=== PATIENT | female | born 1930 | race Caucasian/White ===

== ENCOUNTER 2019-06-12 10:55 | Outpatient (CLI) | payer MEDICARE, BC ==
[~2019-06-12 10:55] MED LIST: ASPI-496 PO; ATOR40TA78 PO; DIPH-419 PO; HYDR1TAB13 PO; METO25TA35 PO; REGADENOSON 0.4 MG/5 ML SYRINGE ONE; VALS320T2 PO
[2019-06-20] MEDS ORDERED: FURO20TA3 PO (06:52)
[2019-06-20] MEDS ORDERED: POTA10TA6 PO (06:53)
[2019-06-20] MEDS ORDERED: TRAZ-96 PO (06:56)
[2019-06-20] MEDS ORDERED: ESCI10TA10 PO (06:56)
[2019-06-20] MEDS ORDERED: BUPR150T13 PO (06:56)
[2019-06-20] MEDS ORDERED: POLY17PO5 PO (06:56)
[2019-08-30] MEDS ORDERED: ISOS30TA8 PO (22:52)
[2019-08-30] MEDS ORDERED: FAMO-79 PO (22:52)
[2019-08-30] MEDS ORDERED: ALBUTEROL INH (22:52)
[2019-08-30] MEDS ORDERED: AMIO200T7 PO (22:52)
[2019-08-30] MEDS ORDERED: HYDR1TAB16 PO (22:52)
[2019-08-30] MEDS ORDERED: FOLI-17 PO (22:52)
[2019-08-30] MEDS ORDERED: ONDA4TAB7 PO (22:52)
[2019-08-30] MEDS ORDERED: TIOT18CA INH (22:52)
[2019-08-30] MEDS ORDERED: CARV3.122 PO (22:52)
[2019-08-30] MEDS ORDERED: SPIR25TA5 PO (23:13)
[2019-09-04] MEDS ORDERED: CEFD300C37 PO (10:56)
== END 2019-06-12 23:59 | disposition home or self-care (01) ==
LOC: CFH 10:55
PROVIDERS: ATTEND Internal Medicine
DX: I08.3 Combined rheumatic disorders of mitral, aortic and tricuspid valves (principal); I21.29 ST elevation (STEMI) myocardial infarction involving other sites; I25.89 Other forms of chronic ischemic heart disease; I10 Essential (primary) hypertension; E78.5 Hyperlipidemia, unspecified; F17.200 Nicotine dependence, unspecified, uncomplicated; Z95.1 Presence of aortocoronary bypass graft
CPT/HCPCS: 78452; 93017; 93306; A9502; J2785

== ENCOUNTER 2019-06-20 06:11 | Day surgery (SDC) | payer MEDICARE, BC ==
[~2019-06-20] VITALS: Ht 162.6 cm; Wt 59.5 kg
[2019-06-20 06:39] VITALS: BP 156/54
== END 2019-06-20 11:30 | disposition home or self-care (01) ==
LOC: CACL 06:11
PROVIDERS: ATTEND Internal Medicine Cardiovascular Disease
DX: I25.119 Atherosclerotic heart disease of native coronary artery with unspecified angina pectoris (principal); I10 Essential (primary) hypertension; E78.2 Mixed hyperlipidemia; F17.210 Nicotine dependence, cigarettes, uncomplicated; Z95.1 Presence of aortocoronary bypass graft
CPT/HCPCS: 36415; 80048; 85025; 93458; 99156; 99157; C1769; C1894; J1644; J2250; J3010; Q9967; J0583

== ENCOUNTER 2019-09-15 12:50 | Inpatient (IN) | payer MEDICARE, BC ==
[~2019-09-15] VITALS: Ht 165.1 cm; Wt 60.0 kg
[~2019-09-15 12:50] MED LIST changes: +ALBUTEROL INH; +AMIO200T7 PO; +BUPR150T13 PO; +CARV3.122 PO; +CEFD300C37 PO; +ESCI10TA10 PO; +FAMO-79 PO; +FOLI-17 PO; +FURO20TA3 PO; +HYDR1TAB16 PO; +ISOS30TA8 PO; +ONDA4TAB7 PO; +POLY17PO5 PO; +POTA10TA6 PO; -REGADENOSON 0.4 MG/5 ML SYRINGE ONE; +SPIR25TA5 PO; +TIOT18CA INH; +TRAZ-96 PO
--- NOTE | 2019-09-15 14:24 | NUR ---
TO ROOM 30 WITH FAMILY
[2019-09-15] MEDS ORDERED: PROCHLORPERAZINE 5 MG/ML, 2ML ONE (14:42)
[2019-09-15] MEDS ORDERED: PROCHLORPERAZINE 5 MG/ML, 2ML IVPush ONE ×2 (15:00→15:30)
[2019-09-15] MEDS ORDERED: SODIUM CHLORIDE FLUSH 10ML SYR IVF ONE (15:00)
[2019-09-15 15:13] LABS: ALANINE AMINOTRANSFERASE 30 U/L (12-78); ALBUMIN 4.3 g/dL (3.4-5.0); ANION GAP 7 mmol/L (5-15); CALCIUM 9.6 mg/dL (8.5-10.1); CHLORIDE 96 mmol/L (98-107); CREATININE 1.03 mg/dL (0.55-1.02)
[2019-09-15 15:16] LABS: ALKALINE PHOSPHATASE 59 U/L (45-117); BILIRUBIN,TOTAL 0.6 mg/dL (0.2-1.0); TOTAL PROTEIN 7.3 g/dL (6.4-8.2)
[2019-09-15 15:35] LABS: BASOPHILS # (AUTO) 0.05 x10^3/uL (0-0.1); BASOPHILS % (AUTO) 0 % (0-1); EOSINOPHILS % (AUTO) 0 % (1-7); LYMPHOCYTES # (AUTO) 0.65 x10^3/uL (1-3.4); LYMPHOCYTES % (AUTO) 6 % (22-44); MD SCAN; MEAN CORPUSCULAR HEMOGLOBIN 34.4 pg (27.0-34.8); MEAN CORPUSCULAR HGB CONC 32.6 g/dL (32.4-35.8); MEAN CORPUSCULAR VOLUME 105.5 fL (80-100); MONOCYTES # (AUTO) 0.89 x10^3/uL (0.2-0.8); MONOCYTES % (AUTO) 8 % (2-9); NEUTROPHILS # (AUTO) 9.84 x10^3/uL (1.8-6.8); NEUTROPHILS % (AUTO) 86 % (42-75); PLATELET COUNT 288 x10^3/uL (130-400); RED BLOOD COUNT 3.76 x10^6/uL (3.82-5.3); RED CELL DISTRIBUTION WIDTH 15.1 % (9.6-15.2)
--- NOTE | 2019-09-15 15:38 | NUR ---
PT NAUSEOUS, MEDICATED PER MAR. TO IMAGING AT THIS TIME.
--- NOTE | 2019-09-15 15:50 | NUR ---
Break RN: pt returned from CT in NAD at this time, awaiting rads read & dispo.
--- NOTE | 2019-09-15 16:20 | NUR ---
Break RN: pt assisted onto bedpan, c/o continued nausea, MD Roberson notified & has been at bedside to reevaluate pt.
[2019-09-15] MEDS ORDERED: SODIUM CHLORIDE 0.9%, 500ML IVBOLUS ONE (17:00)
[2019-09-15] MEDS ORDERED: HALOPERIDOL 5 MG/ML IV PRN (17:00)
[2019-09-15] MEDS ORDERED: FAMOTIDINE 20 MG/2 ML IVPush ONE (17:00)
[2019-09-15] MEDS ORDERED: FAMOTIDINE 20 MG/2 ML ONE (17:04)
[2019-09-15] MEDS ORDERED: HALOPERIDOL 5 MG/ML ONE (17:04)
--- NOTE | 2019-09-15 18:25 | NUR ---
REPORT CALLED TO RECEIVING RN. PT UP TO COMMODE WITH ONE PERSON ASSIST, URINE COLLECTED AND SENT.
[2019-09-15 18:36] LABS: TROPONIN I 0.017 ng/mL (0.000-0.045)
[2019-09-15 18:59] LABS: MICROSCOPIC NOT IND
[2019-09-15 19:02] LABS: CULTURE INDICATED? NO
[2019-09-15] MEDS ORDERED: SODIUM CHLORIDE 0.9% 1,000 ML IV SCH (19:27)
[2019-09-15] MEDS ORDERED: LABETALOL 5 MG/ML SYR. (IV ONLY) IVPush PRN (19:30)
[2019-09-15] MEDS ORDERED: TRAZODONE 50MG TABLET PO PRN (19:30)
[2019-09-15] MEDS: CARVEDILOL 3.125 MG TABLET PO SCH (20:07)
[2019-09-15] MEDS: ONDANSETRON 2MG/ML, 2ML IVPush PRN (20:08)
[2019-09-15] MEDS: HEPARIN 5,000 UNITS/ML, 1ML SQ SCH (20:08)
[2019-09-15 20:55] LABS: ALBUMIN 4.4 g/dL (3.4-5.0); BILIRUBIN, DIRECT 0.2 mg/dL (0.1-0.2)
[2019-09-15 21:05] LABS: BILIRUBIN,INDIRECT 0.4 mg/dL (0.0-2.0); BILIRUBIN,TOTAL 0.6 mg/dL (0.2-1.0); TOTAL PROTEIN 7.4 g/dL (6.4-8.2)
[2019-09-15 23:00] VITALS: BP 159/71
[2019-09-15] MEDS ORDERED: PROMETHAZINE 25 MG/ML, 1ML ONE (23:56)
[2019-09-16] MEDS: IPRATROPIUM 0.5 MG/2.5 ML INHA NPPB SCH ×4 (00:30→21:15)
[2019-09-16 01:35] VITALS: BP_SYST 165; BP_SYST 169; BP_DIAS 74; BP_DIAS 85
[2019-09-16] MEDS: ONDANSETRON 2MG/ML, 2ML IVPush PRN ×3 (02:15→18:07)
[2019-09-16] MEDS: HEPARIN 5,000 UNITS/ML, 1ML SQ SCH ×3 (03:30→19:53)
[2019-09-16 04:35] LABS: BASOPHILS % (AUTO) 0 % (0-1); EOSINOPHILS # (AUTO) 0.08 x10^3/uL (0-0.4); EOSINOPHILS % (AUTO) 1 % (1-7); LYMPHOCYTES # (AUTO) 0.49 x10^3/uL (1-3.4); LYMPHOCYTES % (AUTO) 4 % (22-44); MD NO; MEAN CORPUSCULAR HEMOGLOBIN 34.9 pg (27.0-34.8); MEAN CORPUSCULAR VOLUME 105.9 fL (80-100); MEAN PLATELET VOLUME 9.8 fL (7.4-10.4); MONOCYTES # (AUTO) 1.11 x10^3/uL (0.2-0.8); MONOCYTES % (AUTO) 9 % (2-9); NEUTROPHILS # (AUTO) 10.42 x10^3/uL (1.8-6.8); NEUTROPHILS % (AUTO) 86 % (42-75); PLATELET COUNT 236 x10^3/uL (130-400); RED BLOOD COUNT 3.58 x10^6/uL (3.82-5.3); RED CELL DISTRIBUTION WIDTH 15.2 % (9.6-15.2)
[2019-09-16 04:43] LABS: ANION GAP 9 mmol/L (5-15); CHLORIDE 100 mmol/L (98-107); CREATININE 0.79 mg/dL (0.55-1.02)
[2019-09-16] MEDS ORDERED: hydrALAzine 20 MG/ML, 1ML IV PRN (07:00)
[2019-09-16] MEDS ORDERED: ISOSORBIDE MONONITRATE ER 30 MG TABLET PO SCH (07:00)
[2019-09-16 07:44] VITALS: BP_SYST 161; BP_SYST 170; BP_DIAS 104; BP_DIAS 99
[2019-09-16] MEDS: PROCHLORPERAZINE 5 MG/ML, 2ML IVPush PRN ×3 (08:06→23:33)
[2019-09-16] MEDS: PANTOPRAZOLE 40 MG IV IVPush SCH (08:06)
[2019-09-16] MEDS: SODIUM CHLORIDE 0.9% 1,000 ML IV SCH ×2 (08:13→22:12)
[2019-09-16] MEDS: AMIODARONE 200 MG TABLET PO SCH ×2 (09:00→19:53)
[2019-09-16] MEDS: METOPROLOL TARTRATE 25 MG TABLET PO SCH (09:00)
[2019-09-16] MEDS: CARVEDILOL 3.125 MG TABLET PO SCH ×2 (09:00→19:53)
[2019-09-16] MEDS: SPIRONOLACTONE 25 MG TABLET PO SCH (09:00)
[2019-09-16] MEDS: VALSARTAN 320 MG TABLET PO SCH (09:00)
[2019-09-16] MEDS: SENNA/DOCUSATE TABLET PO SCH (09:00)
[2019-09-16] MEDS: PROMETHAZINE 25 MG/ML, 1ML IM PRN ×3 (14:04→19:53)
[2019-09-16 14:07] VITALS: BP 160/82
[2019-09-16 18:51] VITALS: BP 165/91
[2019-09-16] MEDS: ATORVASTATIN 40 MG TABLET PO SCH (19:54)
[2019-09-17 00:52] VITALS: BP 166/80
[2019-09-17] MEDS: MORPHINE SULFATE 4 MG/ML, 1ML IVPush PRN ×4 (01:04→20:08)
[2019-09-17] MEDS: IPRATROPIUM 0.5 MG/2.5 ML INHA NPPB SCH ×4 (02:30→19:38)
[2019-09-17] MEDS: HEPARIN 5,000 UNITS/ML, 1ML SQ SCH ×3 (03:30→20:08)
[2019-09-17 04:27] LABS: MEAN CORPUSCULAR HEMOGLOBIN 34.8 pg (27.0-34.8); MEAN CORPUSCULAR HGB CONC 32.8 g/dL (32.4-35.8); MEAN CORPUSCULAR VOLUME 106.2 fL (80-100); MEAN PLATELET VOLUME 9.8 fL (7.4-10.4); PLATELET COUNT 221 x10^3/uL (130-400); RED BLOOD COUNT 3.59 x10^6/uL (3.82-5.3); RED CELL DISTRIBUTION WIDTH 15.4 % (9.6-15.2)
[2019-09-17 04:41] LABS: ANION GAP 7 mmol/L (5-15); CALCIUM 9.1 mg/dL (8.5-10.1); CHLORIDE 102 mmol/L (98-107)
[2019-09-17 04:43] LABS: CREATININE 0.87 mg/dL (0.55-1.02)
[2019-09-17 04:46] LABS: BASOPHILS # (AUTO) 0.01 x10^3/uL (0-0.1); BASOPHILS % (AUTO) 0 % (0-1); EOSINOPHILS % (AUTO) 0 % (1-7); LYMPHOCYTES % (AUTO) 5 % (22-44); MD SCAN; MONOCYTES # (AUTO) 1.95 x10^3/uL (0.2-0.8); MONOCYTES % (AUTO) 16 % (2-9); NEUTROPHILS # (AUTO) 9.85 x10^3/uL (1.8-6.8); NEUTROPHILS % (AUTO) 79 % (42-75)
[2019-09-17] MEDS: ONDANSETRON 2MG/ML, 2ML IVPush PRN ×3 (06:00→20:07)
[2019-09-17 07:20] VITALS: BP 133/80
[2019-09-17] MEDS: PROMETHAZINE 25 MG/ML, 1ML IM PRN (08:15)
[2019-09-17] MEDS ORDERED: SCOPOLAMINE PATCH, 1.5MG PATCH.TD72 TD SCH (08:30)
[2019-09-17] MEDS: PANTOPRAZOLE 40 MG IV IVPush SCH (08:30)
[2019-09-17] MEDS ORDERED: GADOTERATE 7.5 MMOL/15 ML SYR ONE (10:26)
[2019-09-17] MEDS: SPIRONOLACTONE 25 MG TABLET PO SCH (11:48)
[2019-09-17] MEDS: METOPROLOL TARTRATE 25 MG TABLET PO SCH (11:48)
[2019-09-17] MEDS: CARVEDILOL 3.125 MG TABLET PO SCH ×2 (11:49→20:08)
[2019-09-17] MEDS: AMIODARONE 200 MG TABLET PO SCH ×2 (11:50→20:09)
[2019-09-17] MEDS: SENNA/DOCUSATE TABLET PO SCH (11:52)
[2019-09-17] MEDS: VALSARTAN 320 MG TABLET PO SCH (11:52)
[2019-09-17 13:46] VITALS: BP 128/64
[2019-09-17] MEDS: ATORVASTATIN 40 MG TABLET PO SCH (20:08)
[2019-09-17] MEDS: SODIUM CHLORIDE 0.9% 1,000 ML IV SCH (20:09)
[2019-09-17 20:16] VITALS: BP 146/78
[2019-09-18 01:14] VITALS: BP 148/78
[2019-09-18] MEDS: HEPARIN 5,000 UNITS/ML, 1ML SQ SCH ×3 (02:35→19:15)
[2019-09-18] MEDS: IPRATROPIUM 0.5 MG/2.5 ML INHA NPPB SCH ×4 (03:00→20:15)
[2019-09-18] MEDS: ONDANSETRON 2MG/ML, 2ML IVPush PRN (05:43)
[2019-09-18] MEDS: MORPHINE SULFATE 4 MG/ML, 1ML IVPush PRN (05:44)
[2019-09-18 06:44] VITALS: BP 128/79
[2019-09-18] MEDS: PANTOPRAZOLE 40 MG IV IVPush SCH (07:38)
[2019-09-18] MEDS: METOPROLOL TARTRATE 25 MG TABLET PO SCH (07:39)
[2019-09-18] MEDS: VALSARTAN 320 MG TABLET PO SCH (07:40)
[2019-09-18] MEDS: SENNA/DOCUSATE TABLET PO SCH (07:41)
[2019-09-18] MEDS: CARVEDILOL 3.125 MG TABLET PO SCH ×2 (07:42→21:17)
[2019-09-18] MEDS: AMIODARONE 200 MG TABLET PO SCH ×2 (07:43→21:17)
[2019-09-18] MEDS: SPIRONOLACTONE 25 MG TABLET PO SCH (07:43)
[2019-09-18 07:46] LABS: BASOPHILS % (AUTO) 0 % (0-1); EOSINOPHILS % (AUTO) 0 % (1-7); LYMPHOCYTES # (AUTO) 0.42 x10^3/uL (1-3.4); LYMPHOCYTES % (AUTO) 4 % (22-44); MD NO; MEAN CORPUSCULAR HEMOGLOBIN 34.7 pg (27.0-34.8); MEAN CORPUSCULAR VOLUME 105.1 fL (80-100); MEAN PLATELET VOLUME 10.3 fL (7.4-10.4); MONOCYTES # (AUTO) 1.36 x10^3/uL (0.2-0.8); MONOCYTES % (AUTO) 13 % (2-9); NEUTROPHILS # (AUTO) 8.44 x10^3/uL (1.8-6.8); NEUTROPHILS % (AUTO) 83 % (42-75); PLATELET COUNT 207 x10^3/uL (130-400); RED BLOOD COUNT 3.45 x10^6/uL (3.82-5.3); RED CELL DISTRIBUTION WIDTH 15.5 % (9.6-15.2)
[2019-09-18 08:00] LABS: ALANINE AMINOTRANSFERASE 48 U/L (12-78); ALBUMIN 3.3 g/dL (3.4-5.0); ANION GAP 6 mmol/L (5-15); CALCIUM 9.1 mg/dL (8.5-10.1); CHLORIDE 107 mmol/L (98-107); CREATININE 0.91 mg/dL (0.55-1.02)
[2019-09-18 08:02] LABS: ALKALINE PHOSPHATASE 86 U/L (45-117); BILIRUBIN,TOTAL 0.8 mg/dL (0.2-1.0)
[2019-09-18] MEDS ORDERED: PROPOFOL 10 MG/ML, 20ML ONE (10:23)
[2019-09-18 13:02] VITALS: BP 129/66
[2019-09-18] MEDS ORDERED: METOCLOPRAMIDE 5 MG/ML, 2ML IVPush PRN (16:00)
[2019-09-18] MEDS ORDERED: METOCLOPRAMIDE 10MG TABLET PO PRN (16:00)
[2019-09-18 16:32] LABS: HEMOGLOBIN A1C 5.6 % (4.2-6.3)
[2019-09-18] MEDS: SODIUM CHLORIDE 0.9% 1,000 ML IV SCH (18:26)
[2019-09-18 18:40] VITALS: BP 91/59
[2019-09-18] MEDS: ATORVASTATIN 40 MG TABLET PO SCH (21:18)
[2019-09-18] MEDS: ACETAMINOPHEN 325 MG TABLET PO PRN (22:22)
[2019-09-19] MEDS: IPRATROPIUM 0.5 MG/2.5 ML INHA NPPB SCH ×4 (03:00→21:28)
[2019-09-19 03:33] VITALS: BP 141/69
[2019-09-19 04:29] LABS: ANION GAP 8 mmol/L (5-15); CALCIUM 9.1 mg/dL (8.5-10.1); CHLORIDE 107 mmol/L (98-107)
[2019-09-19 04:31] LABS: CREATININE 1.75 mg/dL (0.55-1.02)
[2019-09-19 04:34] LABS: MEAN CORPUSCULAR HEMOGLOBIN 35.5 pg (27.0-34.8); MEAN CORPUSCULAR HGB CONC 32.9 g/dL (32.4-35.8); MEAN CORPUSCULAR VOLUME 107.6 fL (80-100); MEAN PLATELET VOLUME 10.7 fL (7.4-10.4); PLATELET COUNT 185 x10^3/uL (130-400); RED BLOOD COUNT 3.41 x10^6/uL (3.82-5.3); RED CELL DISTRIBUTION WIDTH 15.1 % (9.6-15.2)
[2019-09-19 04:59] LABS: BASOPHILS % (AUTO) 0 % (0-1); EOSINOPHILS % (AUTO) 0 % (1-7); LYMPHOCYTES # (AUTO) 0.56 x10^3/uL (1-3.4); LYMPHOCYTES % (AUTO) 4 % (22-44); MD SCAN; MONOCYTES # (AUTO) 1.56 x10^3/uL (0.2-0.8); MONOCYTES % (AUTO) 10 % (2-9); NEUTROPHILS # (AUTO) 13.08 x10^3/uL (1.8-6.8); NEUTROPHILS % (AUTO) 86 % (42-75)
[2019-09-19] MEDS: HEPARIN 5,000 UNITS/ML, 1ML SQ SCH ×3 (05:23→20:46)
[2019-09-19] MEDS: ACETAMINOPHEN 325 MG TABLET PO PRN ×2 (06:15→23:48)
[2019-09-19 07:44] VITALS: BP 142/72
[2019-09-19] MEDS: CARVEDILOL 3.125 MG TABLET PO SCH ×2 (08:01→20:45)
[2019-09-19] MEDS: AMIODARONE 200 MG TABLET PO SCH ×2 (08:01→20:44)
[2019-09-19] MEDS: PANTOPRAZOLE 40 MG IV IVPush SCH (08:01)
[2019-09-19] MEDS: VALSARTAN 320 MG TABLET PO SCH (08:01)
[2019-09-19] MEDS: SPIRONOLACTONE 25 MG TABLET PO SCH (08:02)
[2019-09-19] MEDS: METOPROLOL TARTRATE 25 MG TABLET PO SCH (08:02)
[2019-09-19] MEDS: SENNA/DOCUSATE TABLET PO SCH (08:07)
[2019-09-19] MEDS ORDERED: PINK LADY ENEMA 490 ML BOTTLE PR ONE (10:00)
[2019-09-19] MEDS: NYSTATIN 500,000 UNITS/5 ML UDC PO SCH ×3 (11:15→20:44)
[2019-09-19 13:33] VITALS: BP 138/75
[2019-09-19 18:30] VITALS: BP 122/75
[2019-09-19] MEDS: ATORVASTATIN 40 MG TABLET PO SCH (20:44)
[2019-09-20 00:49] VITALS: BP 116/53
[2019-09-20] MEDS: IPRATROPIUM 0.5 MG/2.5 ML INHA NPPB SCH ×4 (03:00→21:00)
[2019-09-20] MEDS: ACETAMINOPHEN 325 MG TABLET PO PRN ×2 (04:25→20:23)
[2019-09-20 04:32] LABS: BASOPHILS % (AUTO) 0 % (0-1); EOSINOPHILS # (AUTO) 0.01 x10^3/uL (0-0.4); EOSINOPHILS % (AUTO) 0 % (1-7); LYMPHOCYTES # (AUTO) 0.67 x10^3/uL (1-3.4); LYMPHOCYTES % (AUTO) 8 % (22-44); MD NO; MEAN CORPUSCULAR HEMOGLOBIN 34.9 pg (27.0-34.8); MEAN CORPUSCULAR HGB CONC 32.7 g/dL (32.4-35.8); MEAN CORPUSCULAR VOLUME 106.9 fL (80-100); MEAN PLATELET VOLUME 10.5 fL (7.4-10.4); MONOCYTES # (AUTO) 0.75 x10^3/uL (0.2-0.8); MONOCYTES % (AUTO) 9 % (2-9); NEUTROPHILS # (AUTO) 7.23 x10^3/uL (1.8-6.8); NEUTROPHILS % (AUTO) 84 % (42-75); PLATELET COUNT 190 x10^3/uL (130-400); RED BLOOD COUNT 3.34 x10^6/uL (3.82-5.3); RED CELL DISTRIBUTION WIDTH 15.9 % (9.6-15.2)
[2019-09-20 04:44] LABS: ANION GAP 6 mmol/L (5-15); CALCIUM 8.6 mg/dL (8.5-10.1); CHLORIDE 104 mmol/L (98-107); CREATININE 1.49 mg/dL (0.55-1.02)
[2019-09-20] MEDS: NYSTATIN 500,000 UNITS/5 ML UDC PO SCH ×4 (05:24→20:23)
[2019-09-20] MEDS: HEPARIN 5,000 UNITS/ML, 1ML SQ SCH ×2 (05:25→17:36)
[2019-09-20] MEDS ORDERED: SODIUM CHLORIDE 0.9% 1,000 ML IV SCH (07:00)
[2019-09-20 07:19] VITALS: BP 152/82
[2019-09-20] MEDS: PANTOPRAZOLE 40 MG IV IVPush SCH (07:55)
[2019-09-20] MEDS: VALSARTAN 320 MG TABLET PO SCH (07:56)
[2019-09-20] MEDS: LIDODERM 5% PATCH TD SCH (07:56)
[2019-09-20] MEDS: METOPROLOL TARTRATE 25 MG TABLET PO SCH (07:56)
[2019-09-20] MEDS: AMIODARONE 200 MG TABLET PO SCH ×2 (07:56→20:23)
[2019-09-20] MEDS: SENNA/DOCUSATE TABLET PO SCH (07:56)
[2019-09-20] MEDS: HYDROcodone/APAP 5/325 TABLET PO PRN ×3 (07:57→17:36)
[2019-09-20] MEDS: CARVEDILOL 3.125 MG TABLET PO SCH ×2 (07:57→20:24)
[2019-09-20] MEDS: SPIRONOLACTONE 25 MG TABLET PO SCH (07:58)
[2019-09-20 13:28] VITALS: BP 103/67
[2019-09-20 18:29] VITALS: BP_SYST 95; BP_SYST 99; BP_DIAS 53
[2019-09-20] MEDS: ATORVASTATIN 40 MG TABLET PO SCH (20:23)
[2019-09-21] MEDS: HEPARIN 5,000 UNITS/ML, 1ML SQ SCH ×2 (00:29→07:43)
[2019-09-21 01:06] VITALS: BP 109/70
[2019-09-21] MEDS: HYDROcodone/APAP 5/325 TABLET PO PRN ×2 (01:10→07:44)
[2019-09-21] MEDS: IPRATROPIUM 0.5 MG/2.5 ML INHA NPPB SCH ×2 (03:00→09:00)
[2019-09-21] MEDS: NYSTATIN 500,000 UNITS/5 ML UDC PO SCH ×2 (05:53→12:08)
[2019-09-21 06:07] LABS: BASOPHILS # (AUTO) 0.02 x10^3/uL (0-0.1); BASOPHILS % (AUTO) 0 % (0-1); EOSINOPHILS # (AUTO) 0.04 x10^3/uL (0-0.4); EOSINOPHILS % (AUTO) 1 % (1-7); LYMPHOCYTES # (AUTO) 1.04 x10^3/uL (1-3.4); LYMPHOCYTES % (AUTO) 12 % (22-44); MD NO; MEAN CORPUSCULAR HEMOGLOBIN 35.6 pg (27.0-34.8); MEAN CORPUSCULAR VOLUME 107.7 fL (80-100); MEAN PLATELET VOLUME 11.4 fL (7.4-10.4); MONOCYTES % (AUTO) 12 % (2-9); NEUTROPHILS # (AUTO) 6.62 x10^3/uL (1.8-6.8); NEUTROPHILS % (AUTO) 75 % (42-75); PLATELET COUNT 163 x10^3/uL (130-400); RED BLOOD COUNT 3.24 x10^6/uL (3.82-5.3); RED CELL DISTRIBUTION WIDTH 15.1 % (9.6-15.2)
[2019-09-21 06:20] LABS: ANION GAP 8 mmol/L (5-15); CALCIUM 8.2 mg/dL (8.5-10.1); CHLORIDE 105 mmol/L (98-107); CREATININE 1.22 mg/dL (0.55-1.02)
[2019-09-21 07:03] VITALS: BP 124/69
[2019-09-21] MEDS: PANTOPRAZOLE 40 MG IV IVPush SCH ×2 (07:30→07:43)
[2019-09-21] MEDS: AMIODARONE 200 MG TABLET PO SCH (07:44)
[2019-09-21] MEDS: SENNA/DOCUSATE TABLET PO SCH (07:44)
[2019-09-21] MEDS: VALSARTAN 320 MG TABLET PO SCH (07:44)
[2019-09-21] MEDS: LIDODERM 5% PATCH TD SCH (07:44)
[2019-09-21] MEDS: SPIRONOLACTONE 25 MG TABLET PO SCH (07:45)
[2019-09-21] MEDS: METOPROLOL TARTRATE 25 MG TABLET PO SCH (07:45)
[2019-09-21] MEDS: CARVEDILOL 3.125 MG TABLET PO SCH (07:45)
[2019-09-21] MEDS ORDERED: HYDR-3237 PO (11:15)
[2019-09-21] MEDS ORDERED: PANT40TA3 PO (11:15)
[2019-09-21] MEDS ORDERED: ONDA4TAB13 SL (11:15)
[2019-09-21] MEDS ORDERED: LIDO700A20 TD (11:15)
[2019-09-21] MEDS ORDERED: NYST1000 PO (11:15)
== END 2019-09-21 13:19 | DRG 368 ==
LOC: ED 17:02 → EDIP 18:00 → 3N 19:07 → 4NW 22:45
PROVIDERS: ADMIT Internal Medicine; ATTEND Hospitalist
PROC: 0DB68ZX Excision of Stomach, Via Natural or Artificial Opening Endoscopic, Diagnostic (ICD-10-PCS; 2019-09-18)
PROC: 0DB58ZX Excision of Esophagus, Via Natural or Artificial Opening Endoscopic, Diagnostic (ICD-10-PCS; principal; 2019-09-18 10:30)
DX: B37.81 Candidal esophagitis (principal); N17.0 Acute kidney failure with tubular necrosis; I50.22 Chronic systolic (congestive) heart failure; E87.1 Hypo-osmolality and hyponatremia; K31.84 Gastroparesis; K29.70 Gastritis, unspecified, without bleeding; I11.0 Hypertensive heart disease with heart failure; E78.5 Hyperlipidemia, unspecified; F17.210 Nicotine dependence, cigarettes, uncomplicated; I25.10 Atherosclerotic heart disease of native coronary artery without angina pectoris; Z95.1 Presence of aortocoronary bypass graft; G89.29 Other chronic pain; Z66 Do not resuscitate; Z79.891 Long term (current) use of opiate analgesic; Z82.49 Family history of ischemic heart disease and other diseases of the circulatory system; Z85.51 Personal history of malignant neoplasm of bladder; Z90.710 Acquired absence of both cervix and uterus; Z96.642 Presence of left artificial hip joint; K59.00 Constipation, unspecified; I08.1 Rheumatic disorders of both mitral and tricuspid valves; F32.9 Major depressive disorder, single episode, unspecified
CPT/HCPCS: 36415; 70553; 71045; 74018; 74176; 80048; 80053; 80076; 81003; 82533; 82607; 83036; 83690; 83735; 83880; 84100; 84145; 84443; 84484; 85025; 88305; 93005; 93306; 94640; 96361; 96374; 96375; 99285; G0378; J1644; J2405; J2550; J2704; J7644; A9575; C9113; J0360; J0780; J1630; J2270; J3490; J7030; J7040

== ENCOUNTER → 2019-12-25 | Outpatient (CLI) | payer MEDICARE, BC ==
[~2019-12-25] MED LIST changes: +HYDR-3237 PO; +LIDO700A20 TD; +NYST1000 PO; +ONDA4TAB13 SL; +PANT40TA3 PO
[2019-12-25 15:04] LABS: ANION GAP 9 mmol/L (5-15); CALCIUM 8.5 mg/dL (8.5-10.1); CHLORIDE 103 mmol/L (98-107)
== END | disposition home or self-care (01) ==
LOC: LAB 14:30
PROVIDERS: ATTEND Internal Medicine Cardiovascular Disease
DX: Z01.812 Encounter for preprocedural laboratory examination (principal); I25.119 Atherosclerotic heart disease of native coronary artery with unspecified angina pectoris; I47.2 Ventricular tachycardia; I11.0 Hypertensive heart disease with heart failure; E78.2 Mixed hyperlipidemia; R01.1 Cardiac murmur, unspecified; R06.02 Shortness of breath; R91.1 Solitary pulmonary nodule
CPT/HCPCS: 36415; 80048

== ENCOUNTER 2020-03-08 18:43 | Emergency (ER) | payer MEDICARE, BC ==
[~2020-03-08] VITALS: Ht 162.6 cm; Wt 61.3 kg
--- NOTE | 2020-03-08 19:31 | NUR ---
PT TO ROOM FROM LOBBY AT THIS TIME.
[2020-03-08 19:56] LABS: BASOPHILS # (AUTO) 0.01 x10^3/uL (0-0.1); BASOPHILS % (AUTO) 0 % (0-1); EOSINOPHILS # (AUTO) 0.13 x10^3/uL (0-0.4); EOSINOPHILS % (AUTO) 1 % (1-7); LYMPHOCYTES # (AUTO) 1.11 x10^3/uL (1-3.4); LYMPHOCYTES % (AUTO) 10 % (22-44); MD NO; MEAN CORPUSCULAR HEMOGLOBIN 27.9 pg (27.0-34.8); MEAN CORPUSCULAR HGB CONC 31.7 g/dL (32.4-35.8); MEAN PLATELET VOLUME 8.8 fL (7.4-10.4); MONOCYTES # (AUTO) 0.97 x10^3/uL (0.2-0.8); MONOCYTES % (AUTO) 8 % (2-9); NEUTROPHILS # (AUTO) 9.43 x10^3/uL (1.8-6.8); NEUTROPHILS % (AUTO) 81 % (42-75); PLATELET COUNT 296 x10^3/uL (130-400); RED BLOOD COUNT 2.81 x10^6/uL (3.82-5.3); RED CELL DISTRIBUTION WIDTH 19.4 % (9.6-15.2)
[2020-03-08 20:05] LABS: ALANINE AMINOTRANSFERASE 26 U/L (12-78); ALBUMIN 3.1 g/dL (3.4-5.0); ANION GAP 8 mmol/L (5-15); CALCIUM 9.2 mg/dL (8.5-10.1); CHLORIDE 93 mmol/L (98-107); CREATININE 1.25 mg/dL (0.55-1.02)
[2020-03-08 20:08] LABS: ALKALINE PHOSPHATASE 70 U/L (45-117); BILIRUBIN,TOTAL 0.4 mg/dL (0.2-1.0); TOTAL PROTEIN 6.9 g/dL (6.4-8.2)
[2020-03-08 20:29] LABS: MICROSCOPIC NOT IND
[2020-03-08 20:30] LABS: CULTURE INDICATED? NO
--- NOTE | 2020-03-08 20:45 | NUR ---
PT STRAIGHT CATH'D SENT,, BLADDER SCANNED PRE VOID 40, POST VOID [phone]
--- NOTE | 2020-03-08 20:57 | NUR ---
REPORT OF PT FROM ZACHARY ABAD AND ASSUMING CARE OF PT AT THIS TIME.
--- NOTE | 2020-03-08 21:35 | NUR ---
ENEMA ADMINISTERED AND PT TOLERATED WELL. PT RECEIVED 750 OF 1000 ML OF HHH. PT ASSISTED TO BSC AT THIS TIME.
[2020-03-08 22:35] VITALS: BP 131/77
--- NOTE | 2020-03-08 22:35 | NUR ---
PT UNABLE TO HAVE BM AT THIS TIME. DR SMITH AT FOR PT ASSESSMENT OF PT AND TO PLAN FURTHER DISPO.
[2020-03-08] MEDS ORDERED: MIDAZOLAM 1 MG/ML, 2ML ONE (23:07)
--- NOTE | 2020-03-09 02:21 | NUR ---
PT D/C WITH D/C SUMMARY AND SCRIPTS. ALL QUESTIONS ANSWERED. PT WHEELED BY FAMILY TO REGISTRATION DESK FOR D/C HOME. PT DENIES ANY OTHER NEEDS PERTAINING TO THIS VISIT. IV D/C WITH TIP INTACT.
== END 2020-03-09 02:24 | disposition home or self-care (01) ==
LOC: ED 19:42
DX: K59.00 Constipation, unspecified (principal); R33.9 Retention of urine, unspecified; R10.30 Lower abdominal pain, unspecified; I11.0 Hypertensive heart disease with heart failure; E78.5 Hyperlipidemia, unspecified; Z85.51 Personal history of malignant neoplasm of bladder; Z87.891 Personal history of nicotine dependence
CPT/HCPCS: 36415; 74022; 80053; 81003; 83690; 85025; 99284

== ENCOUNTER 2020-04-10 11:59 | Outpatient (CLI) | payer MEDICARE, BC ==
[2020-04-10 15:13] LABS: MEAN CORPUSCULAR HEMOGLOBIN 26.1 pg (27.0-34.8); MEAN CORPUSCULAR HGB CONC 31.8 g/dL (32.4-35.8); MEAN CORPUSCULAR VOLUME 81.9 fL (80-100); MEAN PLATELET VOLUME 9.3 fL (7.4-10.4); PLATELET COUNT 359 x10^3/uL (130-400); RED BLOOD COUNT 3.17 x10^6/uL (3.82-5.3); RED CELL DISTRIBUTION WIDTH 18.8 % (9.6-15.2)
[2020-04-10 15:14] LABS: MD YES
[2020-04-10 15:15] LABS: BAND#(MANUAL) 0.09 x10^3/uL; BANDS%(MANUAL) 1 % (0-7); LYMPHS% (MANUAL) 14 % (22-44); MONOS#(MANUAL) 0.74 x10^3/uL (0.3-2.7); MONOS% (MANUAL) 8 % (2-9); SEG#(MANUAL) 7.16 x10^3/uL (1.8-6.8); SEGS% (MANUAL) 77 % (42-75)
[2020-04-10 15:16] LABS: ANISOCYTOSIS 1+; HYPOCHROMIA 1+; OVALOCYTES 1+
[2020-04-10 15:18] LABS: <PLATELET ESTIMATE> ADEQUATE; LARGE PLATELETS 1+
[2020-04-10 15:21] LABS: ANION GAP 6 mmol/L (5-15); CALCIUM 9.4 mg/dL (8.5-10.1); CHLORIDE 95 mmol/L (98-107); CREATININE 1.61 mg/dL (0.55-1.02)
== END 2020-04-10 23:59 | disposition home or self-care (01) ==
LOC: CFH 11:59
PROVIDERS: ATTEND Internal Medicine Cardiovascular Disease
DX: I12.9 Hypertensive chronic kidney disease with stage 1 through stage 4 chronic kidney disease, or unspecified chronic kidney disease (principal); D64.89 Other specified anemias; N18.9 Chronic kidney disease, unspecified; I50.33 Acute on chronic diastolic (congestive) heart failure; I11.0 Hypertensive heart disease with heart failure
CPT/HCPCS: 36415; 80048; 85025

== ENCOUNTER 2020-04-11 16:40 | Inpatient (IN) | payer MEDICARE, BC ==
[~2020-04-11] VITALS: Ht 165.1 cm; Wt 65.7 kg
[2020-04-11] MEDS ORDERED: SODIUM CHLORIDE 0.9%, 500ML IVBOLUS ONE (17:30)
--- NOTE | 2020-04-11 18:00 | NUR ---
BREAK RN: IV ESTABLISHED AND BLOOD DRAWN, AND SENT TO LAB. PT RESTING IN [place] WITH DAUGHTER AT BEDSIDE. CALL LIGHT WITHIN REACH. NO NEEDS AT THIS TIME.
[2020-04-11 18:14] LABS: INTERNATIONAL NORMALIZED RATIO 1.03 (0.93-1.1); PROTHROMBIN TIME 10.9 Seconds (9.6-11.5)
[2020-04-11 18:16] LABS: ALANINE AMINOTRANSFERASE 42 U/L (12-78); ALBUMIN 3.1 g/dL (3.4-5.0); ANION GAP 9 mmol/L (5-15); CALCIUM 8.5 mg/dL (8.5-10.1); CHLORIDE 96 mmol/L (98-107); CREATININE 1.56 mg/dL (0.55-1.02)
[2020-04-11 18:19] LABS: ALKALINE PHOSPHATASE 61 U/L (45-117); BILIRUBIN,TOTAL 0.3 mg/dL (0.2-1.0); TOTAL PROTEIN 6.2 g/dL (6.4-8.2); TROPONIN I < 0.015 ng/mL (0.000-0.045)
[2020-04-11 18:23] LABS: MD YES; MEAN CORPUSCULAR HEMOGLOBIN 25.4 pg (27.0-34.8); MEAN CORPUSCULAR VOLUME 82.1 fL (80-100); PLATELET COUNT 316 x10^3/uL (130-400); RED BLOOD COUNT 2.66 x10^6/uL (3.82-5.3); RED CELL DISTRIBUTION WIDTH 19.1 % (9.6-15.2)
[2020-04-11 18:35] LABS: BAND#(MANUAL) 0.08 x10^3/uL; BANDS%(MANUAL) 1 % (0-7); BASOS#(MANUAL) 0.08 x10^3/uL (0-0.1); BASOS% (MANUAL) 1 % (0-1); LYMPHS% (MANUAL) 25 % (22-44); MONOS#(MANUAL) 0.88 x10^3/uL (0.3-2.7); MONOS% (MANUAL) 11 % (2-9); SEG#(MANUAL) 4.96 x10^3/uL (1.8-6.8); SEGS% (MANUAL) 62 % (42-75)
[2020-04-11 18:36] LABS: ACANTHOCYTES 1+; ANISOCYTOSIS 1+; HYPOCHROMIA 1+; MICROCYTOSIS 1+; OVALOCYTES 1+; SCHISTOCYTES 1+; TARGET CELLS 1+
[2020-04-11 18:37] LABS: ECHINOCYTES 1+
[2020-04-11 18:38] LABS: <PLATELET ESTIMATE> ADEQUATE; <PLT MORPHOLOGY> NORMAL PLT MORPH
--- NOTE | 2020-04-11 19:03 | NUR ---
REPORT FROM ZACHARY PORTER. PT CARE RESPONSIBLITIES ASSUMED.
[2020-04-11 19:54] VITALS: BP 126/67
--- NOTE | 2020-04-11 20:02 | NUR ---
JOANNA BARRON - [facility] [phone]
--- NOTE | 2020-04-11 20:04 | NUR ---
REPORT CALLED TO ZACHARY MANRIQUEZ. BLOOD TRANSFUSING AT THIS TIME, CONSENT AT BEDSIDE. PT PROVIDED WITH SANDWICH. DENIES ANY NEEDS OR CONCERNS AT THIS TIME. CALL LIGHT IN REACH.
[2020-04-11 20:05] VITALS: BP 124/67
[2020-04-11 20:11] VITALS: BP 123/59
[2020-04-11 20:33] VITALS: BP 110/60
[2020-04-11 22:03] VITALS: BP 115/69
[2020-04-12] MEDS ORDERED: ACETAMINOPHEN 325 MG TABLET PO PRN
[2020-04-12] MEDS ORDERED: hydrALAzine 20 MG/ML, 1ML IVPush PRN
[2020-04-12] MEDS ORDERED: ONDANSETRON 2MG/ML, 2ML IVPush PRN
[2020-04-12 00:47] VITALS: BP 124/67
[2020-04-12] MEDS: ATORVASTATIN 40 MG TABLET PO SCH ×2 (01:00→20:08)
[2020-04-12 01:27] LABS: ABSOLUTE RETICS # 0.057 x10^6/uL (0.5-2.5); RETICULOCYTE COUNT % 1.68 % (0.5-1.5)
[2020-04-12 01:28] LABS: RED BLOOD COUNT 3.42 x10^6/uL (3.82-5.3)
[2020-04-12 06:52] VITALS: BP 114/69
[2020-04-12 07:30] LABS: MEAN CORPUSCULAR HEMOGLOBIN 26.7 pg (27.0-34.8); MEAN CORPUSCULAR HGB CONC 32.2 g/dL (32.4-35.8); MEAN PLATELET VOLUME 8.6 fL (7.4-10.4); PLATELET COUNT 311 x10^3/uL (130-400); RED BLOOD COUNT 3.39 x10^6/uL (3.82-5.3); RED CELL DISTRIBUTION WIDTH 18.1 % (9.6-15.2)
[2020-04-12 07:54] LABS: MD YES
[2020-04-12 08:00] LABS: ANION GAP 6 mmol/L (5-15); CALCIUM 9.1 mg/dL (8.5-10.1); CHLORIDE 100 mmol/L (98-107); CREATININE 1.45 mg/dL (0.55-1.02)
[2020-04-12 08:01] LABS: <PLATELET ESTIMATE> ADEQUATE; <PLT MORPHOLOGY> NORMAL PLT MORPH; ACANTHOCYTES 1+; ANISOCYTOSIS 1+; BAND#(MANUAL) 0.07 x10^3/uL; BANDS%(MANUAL) 1 % (0-7); ECHINOCYTES 1+; HYPOCHROMIA 1+; LYMPH#(MANUAL) 0.95 x10^3/uL (1-3.4); LYMPHS% (MANUAL) 13 % (22-44); MICROCYTOSIS 1+; MONOS#(MANUAL) 0.22 x10^3/uL (0.3-2.7); MONOS% (MANUAL) 3 % (2-9); OVALOCYTES 1+; SCHISTOCYTES 1+; SEG#(MANUAL) 6.06 x10^3/uL (1.8-6.8); SEGS% (MANUAL) 83 % (42-75); TARGET CELLS 1+
[2020-04-12] MEDS: FOLIC ACID 1 MG TABLET PO SCH (08:22)
[2020-04-12] MEDS: HYDROcodone/APAP 5/325 TABLET PO PRN (08:22)
[2020-04-12] MEDS: PANTOPRAZOLE 40MG TABLET PO SCH (08:22)
[2020-04-12] MEDS: CARVEDILOL 3.125 MG TABLET PO SCH ×2 (08:22→20:08)
[2020-04-12] MEDS: BUPROPION SR 150 MG TABLET PO SCH (08:23)
[2020-04-12] MEDS: ISOSORBIDE MONONITRATE ER 30 MG TABLET PO SCH (08:23)
[2020-04-12] MEDS: SPIRONOLACTONE 25 MG TABLET PO SCH (08:23)
[2020-04-12] MEDS: AMIODARONE 200 MG TABLET PO SCH ×2 (08:23→20:08)
[2020-04-12] MEDS: POLYETHYLENE GLYCOL 17 GM PACKET PO SCH ×2 (08:24→08:25)
[2020-04-12] MEDS: VALSARTAN 80 MG TABLET PO SCH (08:24)
[2020-04-12 10:27] LABS: MICROSCOPIC AUTO
[2020-04-12 13:47] VITALS: BP 112/51
[2020-04-12] MEDS ORDERED: ESCI10TA10 PO (16:20)
[2020-04-12] MEDS ORDERED: ASPI-496 PO (16:20)
[2020-04-12] MEDS ORDERED: VENL37.52 PO (16:20)
[2020-04-12] MEDS ORDERED: MECO10005 PO (16:20)
[2020-04-12] MEDS ORDERED: FURO20TA3 PO (16:20)
[2020-04-12] MEDS ORDERED: BISACODYL 10 MG SUPP PR PRN (17:00)
[2020-04-12 18:36] VITALS: BP 99/60
[2020-04-12] MEDS: DOCUSATE 100 MG CAPSULE PO SCH (20:08)
[2020-04-12] MEDS: TRAZODONE 50MG TABLET PO PRN (22:05)
[2020-04-13 00:52] VITALS: BP 111/60
[2020-04-13 05:53] LABS: MEAN CORPUSCULAR HEMOGLOBIN 25.8 pg (27.0-34.8); MEAN CORPUSCULAR VOLUME 83.3 fL (80-100); MEAN PLATELET VOLUME 8.9 fL (7.4-10.4); PLATELET COUNT 279 x10^3/uL (130-400); RED BLOOD COUNT 3.22 x10^6/uL (3.82-5.3); RED CELL DISTRIBUTION WIDTH 17.8 % (9.6-15.2)
[2020-04-13 05:58] LABS: BASOPHILS # (AUTO) 0.01 x10^3/uL (0-0.1); BASOPHILS % (AUTO) 0 % (0-1); EOSINOPHILS # (AUTO) 0.07 x10^3/uL (0-0.4); EOSINOPHILS % (AUTO) 1 % (1-7); LYMPHOCYTES # (AUTO) 1.49 x10^3/uL (1-3.4); LYMPHOCYTES % (AUTO) 18 % (22-44); MD NO; MONOCYTES % (AUTO) 17 % (2-9); NEUTROPHILS # (AUTO) 5.26 x10^3/uL (1.8-6.8); NEUTROPHILS % (AUTO) 64 % (42-75)
[2020-04-13 06:46] LABS: ALANINE AMINOTRANSFERASE 42 U/L (12-78); ALBUMIN 3.1 g/dL (3.4-5.0); ANION GAP 9 mmol/L (5-15); CALCIUM 8.8 mg/dL (8.5-10.1); CHLORIDE 102 mmol/L (98-107); CREATININE 1.37 mg/dL (0.55-1.02)
[2020-04-13 06:49] LABS: ALKALINE PHOSPHATASE 61 U/L (45-117); BILIRUBIN,TOTAL 0.4 mg/dL (0.2-1.0); TOTAL PROTEIN 5.7 g/dL (6.4-8.2)
[2020-04-13 08:06] VITALS: BP 119/67
[2020-04-13] MEDS: DOCUSATE 100 MG CAPSULE PO SCH ×2 (08:11→20:06)
[2020-04-13] MEDS: BUPROPION SR 150 MG TABLET PO SCH (08:11)
[2020-04-13] MEDS: POLYETHYLENE GLYCOL 17 GM PACKET PO SCH (08:11)
[2020-04-13] MEDS: FOLIC ACID 1 MG TABLET PO SCH (08:11)
[2020-04-13] MEDS: AMIODARONE 200 MG TABLET PO SCH ×2 (08:12→20:02)
[2020-04-13] MEDS: PANTOPRAZOLE 40MG TABLET PO SCH (08:12)
[2020-04-13] MEDS: SPIRONOLACTONE 25 MG TABLET PO SCH (08:12)
[2020-04-13] MEDS: HYDROcodone/APAP 5/325 TABLET PO PRN ×2 (08:19→23:14)
[2020-04-13] MEDS: ISOSORBIDE MONONITRATE ER 30 MG TABLET PO SCH (09:00)
[2020-04-13] MEDS: VALSARTAN 80 MG TABLET PO SCH (09:00)
[2020-04-13] MEDS: CARVEDILOL 3.125 MG TABLET PO SCH ×2 (09:00→20:01)
[2020-04-13 09:51] LABS: OCCULT BLOOD NEGATIVE (NEGATIVE)
[2020-04-13] MEDS ORDERED: ONDANSETRON ODT 4 MG SL PRN (10:00)
[2020-04-13 15:54] VITALS: BP 110/66
[2020-04-13] MEDS: ATORVASTATIN 40 MG TABLET PO SCH (20:01)
[2020-04-13 20:10] VITALS: BP 134/82
[2020-04-13] MEDS: IPRATROPIUM 0.5 MG/2.5 ML INHA NPPB SCH (21:00)
[2020-04-13] MEDS: TRAZODONE 50MG TABLET PO PRN (21:18)
[2020-04-14 02:19] VITALS: BP 111/60
[2020-04-14] MEDS: IPRATROPIUM 0.5 MG/2.5 ML INHA NPPB SCH ×3 (03:00→15:00)
[2020-04-14 06:30] VITALS: BP 107/64
[2020-04-14] MEDS: VALSARTAN 80 MG TABLET PO SCH (08:06)
[2020-04-14] MEDS: CARVEDILOL 3.125 MG TABLET PO SCH (08:06)
[2020-04-14] MEDS: ISOSORBIDE MONONITRATE ER 30 MG TABLET PO SCH (08:07)
[2020-04-14] MEDS: BUPROPION SR 150 MG TABLET PO SCH (08:11)
[2020-04-14] MEDS: HYDROcodone/APAP 5/325 TABLET PO PRN (08:11)
[2020-04-14] MEDS: PANTOPRAZOLE 40MG TABLET PO SCH (08:11)
[2020-04-14] MEDS: DOCUSATE 100 MG CAPSULE PO SCH (08:12)
[2020-04-14] MEDS: POLYETHYLENE GLYCOL 17 GM PACKET PO SCH (08:12)
[2020-04-14] MEDS: FOLIC ACID 1 MG TABLET PO SCH (08:12)
[2020-04-14] MEDS: SPIRONOLACTONE 25 MG TABLET PO SCH (08:12)
[2020-04-14] MEDS: AMIODARONE 200 MG TABLET PO SCH (08:12)
[2020-04-14] MEDS ORDERED: ESCITALOPRAM 10MG TABLET PO SCH (09:00)
[2020-04-14] MEDS ORDERED: VENLAFAXINE XR 37.5MG CAP.ER.24H PO SCH (09:00)
[2020-04-14 13:52] VITALS: BP 90/48
[2020-04-14] MEDS ORDERED: CARV3.1212 PO (15:19)
[2020-04-14] MEDS ORDERED: VALS320T2 PO (15:19)
== END 2020-04-14 17:23 | disposition home or self-care (01) | DRG 291 ==
LOC: ED 19:24 → EDIP 19:40 → 4WST 20:22
PROVIDERS: ADMIT Family Medicine; ATTEND Family Medicine
PROC: 30233N1 Transfusion of Nonautologous Red Blood Cells into Peripheral Vein, Percutaneous Approach (ICD-10-PCS; principal; 2020-04-11)
DX: I13.0 Hypertensive heart and chronic kidney disease with heart failure and stage 1 through stage 4 chronic kidney disease, or unspecified chronic kidney disease (principal); N17.0 Acute kidney failure with tubular necrosis; I50.43 Acute on chronic combined systolic (congestive) and diastolic (congestive) heart failure; E44.0 Moderate protein-calorie malnutrition; E87.1 Hypo-osmolality and hyponatremia; Z66 Do not resuscitate; E78.5 Hyperlipidemia, unspecified; E86.1 Hypovolemia; D64.9 Anemia, unspecified; F17.210 Nicotine dependence, cigarettes, uncomplicated; F32.9 Major depressive disorder, single episode, unspecified; F41.9 Anxiety disorder, unspecified; D63.1 Anemia in chronic kidney disease; G89.29 Other chronic pain; I25.10 Atherosclerotic heart disease of native coronary artery without angina pectoris; J44.9 Chronic obstructive pulmonary disease, unspecified; K31.84 Gastroparesis; N18.9 Chronic kidney disease, unspecified; Z96.642 Presence of left artificial hip joint; K59.09 Other constipation; Z82.49 Family history of ischemic heart disease and other diseases of the circulatory system; Z85.51 Personal history of malignant neoplasm of bladder; Z90.710 Acquired absence of both cervix and uterus; Z95.1 Presence of aortocoronary bypass graft; Z68.24 Body mass index [BMI] 24.0-24.9, adult; Z79.899 Other long term (current) drug therapy
CPT/HCPCS: 36415; 71045; 80048; 80053; 81001; 82272; 82728; 83540; 83550; 83615; 84443; 84466; 84484; 85014; 85018; 85025; 85045; 85610; 85730; 86850; 86900; 86923; 87086; 93005; 99285; G0378; Q0162; P9016

== ENCOUNTER 2020-04-23 11:37 | Outpatient (CLI) | payer MEDICARE, BC ==
[~2020-04-23 11:37] MED LIST changes: +CARV3.1212 PO; +MECO10005 PO; +VENL37.52 PO
[2020-04-23 15:00] LABS: MEAN CORPUSCULAR HEMOGLOBIN 26.6 pg (27.0-34.8); MEAN CORPUSCULAR HGB CONC 30.8 g/dL (32.4-35.8); MEAN CORPUSCULAR VOLUME 86.5 fL (80-100); MEAN PLATELET VOLUME 9.8 fL (7.4-10.4); PLATELET COUNT 285 x10^3/uL (130-400); RED BLOOD COUNT 3.82 x10^6/uL (3.82-5.3)
[2020-04-23 15:02] LABS: RED CELL DISTRIBUTION WIDTH 21.3 % (9.6-15.2)
[2020-04-23 15:04] LABS: ANION GAP 6 mmol/L (5-15); CALCIUM 8.9 mg/dL (8.5-10.1); CHLORIDE 102 mmol/L (98-107); CREATININE 1.39 mg/dL (0.55-1.02)
[2020-04-23 15:33] LABS: FOLATE LEVEL > 20.0 ng/mL (3.1-17.5)
[2020-04-23 15:35] LABS: MD YES
[2020-04-23 15:37] LABS: EOS#(MANUAL) 0.16 x10^3/uL (0.0-0.4); EOS% (MANUAL) 2 % (1-7); LYMPH#(MANUAL) 1.64 x10^3/uL (1-3.4); LYMPHS% (MANUAL) 20 % (22-44); MONOS#(MANUAL) 0.74 x10^3/uL (0.3-2.7); MONOS% (MANUAL) 9 % (2-9); SEG#(MANUAL) 5.66 x10^3/uL (1.8-6.8); SEGS% (MANUAL) 69 % (42-75)
[2020-04-23 15:40] LABS: OVALOCYTES 2+; SCHISTOCYTES 1+
[2020-04-23 15:41] LABS: ACANTHOCYTES 1+
[2020-04-23 15:42] LABS: <PLATELET ESTIMATE> ADEQUATE; ANISOCYTOSIS 2+; ECHINOCYTES 1+; LARGE PLATELETS 1+
[2020-04-23 15:44] LABS: HYPOCHROMIA 2+
== END 2020-04-23 23:59 | disposition home or self-care (01) ==
LOC: CFH 11:37
PROVIDERS: ATTEND Registered Nurse
DX: I12.0 Hypertensive chronic kidney disease with stage 5 chronic kidney disease or end stage renal disease (principal); N18.5 Chronic kidney disease, stage 5; D64.89 Other specified anemias
CPT/HCPCS: 36415; 80048; 82607; 82746; 85025

== ENCOUNTER 2020-06-01 16:23 | Inpatient (IN) | payer MEDICARE, BC ==
[~2020-06-01] VITALS: Ht 165.1 cm; Wt 60.0 kg
[2020-06-01] MEDS ORDERED: ONDANSETRON 2MG/ML, 2ML IVPush ONE (17:00)
[2020-06-01] MEDS ORDERED: ONDANSETRON 2MG/ML, 2ML ONE (17:00)
[2020-06-01 17:30] LABS: ALBUMIN 3.7 g/dL (3.4-5.0); ANION GAP 10 mmol/L (5-15); CALCIUM 9.2 mg/dL (8.5-10.1); CHLORIDE 101 mmol/L (98-107)
[2020-06-01 17:34] LABS: ALANINE AMINOTRANSFERASE 51 U/L (12-78); ALKALINE PHOSPHATASE 101 U/L (45-117); BILIRUBIN,TOTAL 0.5 mg/dL (0.2-1.0); CREATININE 1.05 mg/dL (0.55-1.02); TOTAL PROTEIN 7.1 g/dL (6.4-8.2)
[2020-06-01 17:43] LABS: BASOPHILS % (AUTO) 0 % (0-1); EOSINOPHILS # (AUTO) 0.04 x10^3/uL (0-0.4); EOSINOPHILS % (AUTO) 0 % (1-7); LYMPHOCYTES # (AUTO) 0.59 x10^3/uL (1-3.4); LYMPHOCYTES % (AUTO) 6 % (22-44); MD MORPH REVIEW ONLY; MEAN CORPUSCULAR HEMOGLOBIN 32.4 pg (27.0-34.8); MEAN CORPUSCULAR HGB CONC 32.2 g/dL (32.4-35.8); MEAN PLATELET VOLUME 10.7 fL (7.4-10.4); MONOCYTES % (AUTO) 1 % (2-9); NEUTROPHILS % (AUTO) 93 % (42-75); PLATELET COUNT 246 x10^3/uL (130-400); RED BLOOD COUNT 4.38 x10^6/uL (3.82-5.3); RED CELL DISTRIBUTION WIDTH 27.1 % (9.6-15.2)
[2020-06-01 17:46] LABS: ANISOCYTOSIS 2+; ECHINOCYTES 1+; HYPOCHROMIA 1+; OVALOCYTES 2+
[2020-06-01 17:47] LABS: <PLATELET ESTIMATE> ADEQUATE; ACANTHOCYTES 1+; SCHISTOCYTES 1+
[2020-06-01 17:48] LABS: LARGE PLATELETS 1+
--- NOTE | 2020-06-01 17:48 | NUR ---
this tech did ekg
[2020-06-01] MEDS ORDERED: FUROSEMIDE 40 MG/4 ML IV ONE (18:30)
[2020-06-01] MEDS ORDERED: FUROSEMIDE 20 MG/2 ML ONE (18:34)
--- NOTE | 2020-06-01 18:42 | NUR ---
Received report from Arun SHARMA. Pt to be admitted.
[2020-06-01] MEDS ORDERED: ALBUTEROL HFA 90 MCG/SPRAY INH PRN (20:00)
[2020-06-01] MEDS ORDERED: morphine SULFATE 10 MG/ML, 1ML IVPush PRN (20:00)
[2020-06-01] MEDS ORDERED: hydrALAzine 20 MG/ML, 1ML IVPush PRN (20:00)
[2020-06-01] MEDS ORDERED: PROMETHAZINE 25 MG/ML, 1ML IM PRN (20:00)
[2020-06-01] MEDS ORDERED: ACETAMINOPHEN 325 MG TABLET PO PRN (20:00)
[2020-06-01 20:30] LABS: FREE T4 (FREE THYROXINE) 1.29 ng/dL (0.76-1.46)
[2020-06-01 21:38] VITALS: BP 122/63
[2020-06-01] MEDS: ATORVASTATIN 40 MG TABLET PO SCH (22:28)
[2020-06-01] MEDS: HEPARIN 5,000 UNITS/ML, 1ML SQ SCH (22:28)
[2020-06-02 01:02] VITALS: BP 128/65
[2020-06-02] MEDS: OXYcodone IR 5MG TABLET PO PRN ×4 (01:12→22:02)
[2020-06-02 01:20] LABS: MICROSCOPIC NOT IND
[2020-06-02] MEDS: HEPARIN 5,000 UNITS/ML, 1ML SQ SCH ×3 (05:23→20:01)
[2020-06-02 06:18] LABS: CHLORIDE 105 mmol/L (98-107)
[2020-06-02 06:19] LABS: MEAN CORPUSCULAR HEMOGLOBIN 32.2 pg (27.0-34.8); MEAN PLATELET VOLUME 10.6 fL (7.4-10.4); PLATELET COUNT 211 x10^3/uL (130-400); RED CELL DISTRIBUTION WIDTH 27.1 % (9.6-15.2)
[2020-06-02 06:24] LABS: ALANINE AMINOTRANSFERASE 39 U/L (12-78); ALBUMIN 2.9 g/dL (3.4-5.0); ALKALINE PHOSPHATASE 77 U/L (45-117); ANION GAP 8 mmol/L (5-15); BILIRUBIN,TOTAL 0.5 mg/dL (0.2-1.0); CALCIUM 9.1 mg/dL (8.5-10.1); CHOL/HDL RATIO 1.6; CHOLESTEROL, TOTAL 97 mg/dL (140-239); CREATININE 1.01 mg/dL (0.55-1.02); HDL CHOL % 61 % (28-40); HDL CHOLESTEROL (DIRECT) 59 mg/dL (40-60); LDL CHOLESTEROL,CALCULATED 28 mg/dL (54-169); LDL/HDL RATIO 0.5 (0.5-3.0); TOTAL PROTEIN 5.6 g/dL (6.4-8.2); TRIGLYCERIDES 51 mg/dL (50-200); VLDL CHOLESTEROL 10 mg/dL (0-25)
[2020-06-02 06:40] LABS: BASOPHILS # (AUTO) 0.03 x10^3/uL (0-0.1); BASOPHILS % (AUTO) 0 % (0-1); EOSINOPHILS % (AUTO) 0 % (1-7); LYMPHOCYTES # (AUTO) 1.21 x10^3/uL (1-3.4); LYMPHOCYTES % (AUTO) 17 % (22-44); MD SCAN; MONOCYTES # (AUTO) 1.09 x10^3/uL (0.2-0.8); MONOCYTES % (AUTO) 15 % (2-9); NEUTROPHILS # (AUTO) 4.95 x10^3/uL (1.8-6.8); NEUTROPHILS % (AUTO) 68 % (42-75)
[2020-06-02 07:00] VITALS: BP 128/66
[2020-06-02 08:31] VITALS: BP 123/64
[2020-06-02] MEDS: CYANOCOBALAMIN 1,000 MCG TABLET PO SCH (08:33)
[2020-06-02] MEDS: FUROSEMIDE 20 MG/2 ML IV SCH ×2 (08:33→17:04)
[2020-06-02] MEDS: BUPROPION SR 150 MG TABLET PO SCH (08:33)
[2020-06-02] MEDS: AMIODARONE 200 MG TABLET PO SCH (08:34)
[2020-06-02] MEDS: FOLIC ACID 1 MG TABLET PO SCH (08:34)
[2020-06-02] MEDS: VALSARTAN 80 MG TABLET PO SCH (08:34)
[2020-06-02] MEDS: SPIRONOLACTONE 25 MG TABLET PO SCH (08:34)
[2020-06-02] MEDS: ASPIRIN 81 MG TABLET EC PO SCH (08:34)
[2020-06-02] MEDS: VENLAFAXINE XR 37.5MG CAP.ER.24H PO SCH (08:34)
[2020-06-02] MEDS: TIOTROPIUM BROMIDE 18 MCG/INH INH SCH (10:06)
[2020-06-02 14:07] VITALS: BP 128/64
[2020-06-02 19:07] VITALS: BP 133/88
[2020-06-02 19:19] LABS: TROPONIN I 0.015 ng/mL (0.000-0.045)
[2020-06-02] MEDS: ATORVASTATIN 40 MG TABLET PO SCH (20:01)
[2020-06-02] MEDS: TRAZODONE 50MG TABLET PO PRN (22:01)
[2020-06-03 02:00] VITALS: BP 127/62
[2020-06-03] MEDS: HEPARIN 5,000 UNITS/ML, 1ML SQ SCH ×3 (05:54→20:10)
[2020-06-03] MEDS: OXYcodone IR 5MG TABLET PO PRN ×2 (05:58→20:11)
[2020-06-03 06:53] LABS: ANION GAP 6 mmol/L (5-15); CALCIUM 9.2 mg/dL (8.5-10.1); CHLORIDE 99 mmol/L (98-107); CREATININE 1.25 mg/dL (0.55-1.02)
[2020-06-03 08:02] LABS: MEAN CORPUSCULAR HEMOGLOBIN 32.4 pg (27.0-34.8); MEAN CORPUSCULAR HGB CONC 32.1 g/dL (32.4-35.8); MEAN PLATELET VOLUME 10.3 fL (7.4-10.4); PLATELET COUNT 208 x10^3/uL (130-400); RED BLOOD COUNT 3.75 x10^6/uL (3.82-5.3); RED CELL DISTRIBUTION WIDTH 26.3 % (9.6-15.2)
[2020-06-03 08:07] VITALS: BP 115/58
[2020-06-03] MEDS: BUPROPION SR 150 MG TABLET PO SCH (08:08)
[2020-06-03] MEDS: FOLIC ACID 1 MG TABLET PO SCH (08:08)
[2020-06-03] MEDS: ASPIRIN 81 MG TABLET EC PO SCH (08:08)
[2020-06-03] MEDS: VALSARTAN 80 MG TABLET PO SCH (08:08)
[2020-06-03] MEDS: VENLAFAXINE XR 37.5MG CAP.ER.24H PO SCH (08:08)
[2020-06-03] MEDS: SPIRONOLACTONE 25 MG TABLET PO SCH (08:09)
[2020-06-03] MEDS: AMIODARONE 200 MG TABLET PO SCH (08:09)
[2020-06-03] MEDS: CYANOCOBALAMIN 1,000 MCG TABLET PO SCH (08:09)
[2020-06-03] MEDS: FUROSEMIDE 20 MG/2 ML IV SCH (08:09)
[2020-06-03] MEDS: TIOTROPIUM BROMIDE 18 MCG/INH INH SCH (08:16)
[2020-06-03 08:28] VITALS: BP 104/65
[2020-06-03 08:35] LABS: MD YES
[2020-06-03 08:38] LABS: ANISOCYTOSIS 2+; ECHINOCYTES 1+; EOS#(MANUAL) 0.08 x10^3/uL (0.0-0.4); EOS% (MANUAL) 1 % (1-7); LYMPH#(MANUAL) 1.88 x10^3/uL (1-3.4); LYMPHS% (MANUAL) 25 % (22-44); MONOS% (MANUAL) 8 % (2-9); SEG#(MANUAL) 4.95 x10^3/uL (1.8-6.8); SEGS% (MANUAL) 66 % (42-75)
[2020-06-03 08:39] LABS: ACANTHOCYTES 1+; HYPOCHROMIA 1+; OVALOCYTES 1+
[2020-06-03 08:40] LABS: SCHISTOCYTES 1+
[2020-06-03 08:41] LABS: <PLATELET ESTIMATE> ADEQUATE; <PLT MORPHOLOGY> NORMAL PLT MORPH
[2020-06-03 15:39] VITALS: BP 98/61
[2020-06-03] MEDS: ATORVASTATIN 40 MG TABLET PO SCH (20:10)
[2020-06-03 20:28] VITALS: BP 108/61
[2020-06-03] MEDS: TRAZODONE 50MG TABLET PO PRN (21:32)
[2020-06-04 02:00] VITALS: BP 90/48
[2020-06-04] MEDS: HEPARIN 5,000 UNITS/ML, 1ML SQ SCH ×3 (04:34→20:32)
[2020-06-04 04:49] LABS: ANION GAP 5 mmol/L (5-15); CHLORIDE 97 mmol/L (98-107); CREATININE 1.29 mg/dL (0.55-1.02)
[2020-06-04 07:13] VITALS: BP 106/59
[2020-06-04] MEDS: FOLIC ACID 1 MG TABLET PO SCH (08:41)
[2020-06-04] MEDS: CYANOCOBALAMIN 1,000 MCG TABLET PO SCH (08:41)
[2020-06-04] MEDS: VENLAFAXINE XR 37.5MG CAP.ER.24H PO SCH (08:41)
[2020-06-04] MEDS: OXYcodone IR 5MG TABLET PO PRN ×2 (08:41→21:15)
[2020-06-04] MEDS: VALSARTAN 80 MG TABLET PO SCH (08:42)
[2020-06-04] MEDS: BUPROPION SR 150 MG TABLET PO SCH (08:42)
[2020-06-04] MEDS: ASPIRIN 81 MG TABLET EC PO SCH (08:42)
[2020-06-04] MEDS: AMIODARONE 200 MG TABLET PO SCH (08:42)
[2020-06-04] MEDS: SPIRONOLACTONE 25 MG TABLET PO SCH (08:42)
[2020-06-04] MEDS: TIOTROPIUM BROMIDE 18 MCG/INH INH SCH (09:00)
[2020-06-04] MEDS ORDERED: FUROSEMIDE 20 MG/2 ML IV SCH (09:00)
[2020-06-04 13:23] VITALS: BP 106/59
[2020-06-04] MEDS: DOCUSATE 100 MG CAPSULE PO PRN (15:14)
[2020-06-04] MEDS ORDERED: CALCIUM CARBONATE 500 MG TAB.CHEW PO PRN (18:00)
[2020-06-04 19:33] VITALS: BP 114/65
[2020-06-04] MEDS: ATORVASTATIN 40 MG TABLET PO SCH (20:31)
[2020-06-04] MEDS: POLYETHYLENE GLYCOL 17 GM PACKET PO PRN (20:37)
[2020-06-04] MEDS: TRAZODONE 50MG TABLET PO PRN (21:14)
[2020-06-05 00:43] VITALS: BP 106/66
[2020-06-05] MEDS: HEPARIN 5,000 UNITS/ML, 1ML SQ SCH ×3 (04:26→20:56)
[2020-06-05 06:02] LABS: ANION GAP 6 mmol/L (5-15); CHLORIDE 96 mmol/L (98-107)
[2020-06-05 06:05] LABS: CREATININE 1.03 mg/dL (0.55-1.02)
[2020-06-05] MEDS: PANTOPRAZOLE 40MG TABLET PO SCH (06:21)
[2020-06-05 06:45] VITALS: BP 115/72
[2020-06-05] MEDS: TIOTROPIUM BROMIDE 18 MCG/INH INH SCH (08:00)
[2020-06-05] MEDS: BUPROPION SR 150 MG TABLET PO SCH (08:01)
[2020-06-05] MEDS: AMIODARONE 200 MG TABLET PO SCH (08:01)
[2020-06-05] MEDS: FOLIC ACID 1 MG TABLET PO SCH (08:01)
[2020-06-05] MEDS: VENLAFAXINE XR 37.5MG CAP.ER.24H PO SCH (08:01)
[2020-06-05] MEDS: VALSARTAN 80 MG TABLET PO SCH (08:01)
[2020-06-05] MEDS: ASPIRIN 81 MG TABLET EC PO SCH (08:01)
[2020-06-05] MEDS: CYANOCOBALAMIN 1,000 MCG TABLET PO SCH (08:01)
[2020-06-05] MEDS: SPIRONOLACTONE 25 MG TABLET PO SCH (08:01)
[2020-06-05] MEDS: FUROSEMIDE 20 MG/2 ML IV SCH (11:20)
[2020-06-05 12:15] VITALS: BP 118/68
[2020-06-05] MEDS: OXYcodone IR 5MG TABLET PO PRN ×2 (15:50→20:55)
[2020-06-05] MEDS: POLYETHYLENE GLYCOL 17 GM PACKET PO PRN (15:50)
[2020-06-05 18:43] VITALS: BP 113/65
[2020-06-05] MEDS: ATORVASTATIN 40 MG TABLET PO SCH (20:55)
[2020-06-05] MEDS: TRAZODONE 50MG TABLET PO PRN ×2 (20:56→21:47)
[2020-06-05] MEDS: DOCUSATE 100 MG CAPSULE PO PRN (20:56)
[2020-06-06 00:11] VITALS: BP 129/77
[2020-06-06] MEDS: HEPARIN 5,000 UNITS/ML, 1ML SQ SCH ×2 (05:16→12:26)
[2020-06-06] MEDS: BISACODYL 10 MG SUPP PR PRN (05:16)
[2020-06-06] MEDS: PANTOPRAZOLE 40MG TABLET PO SCH (05:16)
[2020-06-06 06:49] VITALS: BP 124/61
[2020-06-06 07:51] LABS: ANION GAP 5 mmol/L (5-15); CALCIUM 9.3 mg/dL (8.5-10.1); CHLORIDE 97 mmol/L (98-107)
[2020-06-06 07:52] LABS: CREATININE 0.94 mg/dL (0.55-1.02)
[2020-06-06] MEDS: CYANOCOBALAMIN 1,000 MCG TABLET PO SCH (09:00)
[2020-06-06] MEDS: VALSARTAN 80 MG TABLET PO SCH (09:30)
[2020-06-06] MEDS: FUROSEMIDE 20 MG/2 ML IV SCH ×3 (09:30→21:15)
[2020-06-06] MEDS: VENLAFAXINE XR 37.5MG CAP.ER.24H PO SCH (09:30)
[2020-06-06] MEDS: BUPROPION SR 150 MG TABLET PO SCH (09:30)
[2020-06-06] MEDS: FOLIC ACID 1 MG TABLET PO SCH (09:31)
[2020-06-06] MEDS: AMIODARONE 200 MG TABLET PO SCH (09:31)
[2020-06-06] MEDS: ASPIRIN 81 MG TABLET EC PO SCH (09:31)
[2020-06-06] MEDS: SPIRONOLACTONE 25 MG TABLET PO SCH (09:31)
[2020-06-06] MEDS: OXYcodone IR 5MG TABLET PO PRN ×2 (09:31→21:15)
[2020-06-06] MEDS: TIOTROPIUM BROMIDE 18 MCG/INH INH SCH (10:13)
[2020-06-06 14:47] VITALS: BP 99/61
[2020-06-06] MEDS ORDERED: OMNIPAQUE 350 MG/ML, 75ML BOTTLE ONE (15:55)
[2020-06-06] MEDS: ENOXAPARIN 60 MG/0.6 ML SQ SCH (18:34)
[2020-06-06 18:46] VITALS: BP 112/69
[2020-06-06] MEDS: ATORVASTATIN 40 MG TABLET PO SCH (21:15)
[2020-06-06] MEDS: TRAZODONE 50MG TABLET PO PRN (22:01)
[2020-06-07 01:01] VITALS: BP 102/63
[2020-06-07 05:13] LABS: ANION GAP 5 mmol/L (5-15); CALCIUM 9.4 mg/dL (8.5-10.1); CHLORIDE 95 mmol/L (98-107); CREATININE 1.21 mg/dL (0.55-1.02)
[2020-06-07] MEDS: PANTOPRAZOLE 40MG TABLET PO SCH (06:03)
[2020-06-07] MEDS: ENOXAPARIN 60 MG/0.6 ML SQ SCH (06:03)
[2020-06-07] MEDS: VALSARTAN 80 MG TABLET PO SCH (07:43)
[2020-06-07] MEDS: VENLAFAXINE XR 37.5MG CAP.ER.24H PO SCH (07:43)
[2020-06-07] MEDS: CYANOCOBALAMIN 1,000 MCG TABLET PO SCH (07:43)
[2020-06-07] MEDS: SPIRONOLACTONE 25 MG TABLET PO SCH (07:43)
[2020-06-07] MEDS: FOLIC ACID 1 MG TABLET PO SCH (07:43)
[2020-06-07] MEDS: FUROSEMIDE 20 MG/2 ML IV SCH ×2 (07:43→20:41)
[2020-06-07] MEDS: AMIODARONE 200 MG TABLET PO SCH (07:44)
[2020-06-07] MEDS: TIOTROPIUM BROMIDE 18 MCG/INH INH SCH (07:44)
[2020-06-07] MEDS: BUPROPION SR 150 MG TABLET PO SCH (07:44)
[2020-06-07] MEDS: ASPIRIN 81 MG TABLET EC PO SCH (07:44)
[2020-06-07 07:45] VITALS: BP 106/64
[2020-06-07] MEDS: OXYcodone IR 5MG TABLET PO PRN ×3 (07:53→20:40)
[2020-06-07] MEDS ORDERED: LIDOCAINE 1%, 10ML ONE (11:59)
[2020-06-07 14:07] VITALS: BP 97/62
[2020-06-07] MEDS: DOCUSATE 100 MG CAPSULE PO PRN (15:03)
[2020-06-07] MEDS: CARVEDILOL 3.125 MG TABLET PO SCH (18:00)
[2020-06-07 18:20] VITALS: BP 94/54
[2020-06-07 18:30] VITALS: BP 99/59
[2020-06-07] MEDS: ATORVASTATIN 40 MG TABLET PO SCH (20:41)
[2020-06-07] MEDS: POLYETHYLENE GLYCOL 17 GM PACKET PO PRN (20:50)
[2020-06-07] MEDS: TRAZODONE 50MG TABLET PO PRN (22:21)
[2020-06-08 00:34] VITALS: BP 117/75
[2020-06-08 05:55] VITALS: BP 118/74
[2020-06-08] MEDS: PANTOPRAZOLE 40MG TABLET PO SCH (05:56)
[2020-06-08] MEDS: CARVEDILOL 3.125 MG TABLET PO SCH ×2 (05:56→18:26)
[2020-06-08] MEDS: BISACODYL 10 MG SUPP PR PRN (05:56)
[2020-06-08] MEDS ORDERED: ENOXAPARIN 60 MG/0.6 ML SQ SCH (06:00)
[2020-06-08 06:28] LABS: ANION GAP 9 mmol/L (5-15); CHLORIDE 92 mmol/L (98-107)
[2020-06-08 06:29] LABS: CREATININE 2.27 mg/dL (0.55-1.02)
[2020-06-08 06:55] VITALS: BP 112/66
[2020-06-08] MEDS: TIOTROPIUM BROMIDE 18 MCG/INH INH SCH (08:30)
[2020-06-08] MEDS: FOLIC ACID 1 MG TABLET PO SCH (08:30)
[2020-06-08] MEDS: ASPIRIN 81 MG TABLET EC PO SCH (08:31)
[2020-06-08] MEDS: BUPROPION SR 150 MG TABLET PO SCH (08:31)
[2020-06-08] MEDS: AMIODARONE 200 MG TABLET PO SCH (08:31)
[2020-06-08] MEDS: SPIRONOLACTONE 25 MG TABLET PO SCH (08:31)
[2020-06-08] MEDS: CYANOCOBALAMIN 1,000 MCG TABLET PO SCH (08:31)
[2020-06-08] MEDS: VALSARTAN 80 MG TABLET PO SCH (08:31)
[2020-06-08] MEDS: VENLAFAXINE XR 37.5MG CAP.ER.24H PO SCH (08:31)
[2020-06-08 08:48] VITALS: BP 113/67
[2020-06-08] MEDS ORDERED: ALBUMIN HUMAN 25% 100 ML ONE (12:01)
[2020-06-08] MEDS: ALBUMIN HUMAN 25% 100 ML IV SCH ×2 (12:09→20:28)
[2020-06-08] MEDS: ONDANSETRON ODT 4 MG PO PRN (13:17)
[2020-06-08] MEDS: OXYcodone IR 5MG TABLET PO PRN ×2 (13:17→20:28)
[2020-06-08 18:17] VITALS: BP 104/62
[2020-06-08] MEDS: APIXABAN 5 MG TABLET PO SCH (18:18)
[2020-06-08 18:50] VITALS: BP 101/64
[2020-06-08] MEDS ORDERED: FUROSEMIDE 20 MG/2 ML IV SCH (20:00)
[2020-06-08] MEDS: ATORVASTATIN 40 MG TABLET PO SCH (20:28)
[2020-06-08] MEDS: TRAZODONE 50MG TABLET PO PRN (22:21)
[2020-06-09 00:13] VITALS: BP 109/66
[2020-06-09 04:12] LABS: ANION GAP 8 mmol/L (5-15); CALCIUM 9.2 mg/dL (8.5-10.1); CHLORIDE 89 mmol/L (98-107); CREATININE 2.99 mg/dL (0.55-1.02)
[2020-06-09 04:15] LABS: MEAN CORPUSCULAR HEMOGLOBIN 32.5 pg (27.0-34.8); MEAN CORPUSCULAR HGB CONC 32.3 g/dL (32.4-35.8); MEAN PLATELET VOLUME 10.6 fL (7.4-10.4); PLATELET COUNT 168 x10^3/uL (130-400); RED BLOOD COUNT 3.47 x10^6/uL (3.82-5.3); RED CELL DISTRIBUTION WIDTH 24.4 % (9.6-15.2)
[2020-06-09 05:03] LABS: MD YES
[2020-06-09 05:05] LABS: ACANTHOCYTES 1+; ANISOCYTOSIS 1+; BAND#(MANUAL) 0.14 x10^3/uL; BANDS%(MANUAL) 2 % (0-7); ECHINOCYTES 1+; EOS#(MANUAL) 0.28 x10^3/uL (0.0-0.4); EOS% (MANUAL) 4 % (1-7); HYPOCHROMIA 1+; LYMPH#(MANUAL) 1.35 x10^3/uL (1-3.4); LYMPHS% (MANUAL) 19 % (22-44); MONOS#(MANUAL) 0.64 x10^3/uL (0.3-2.7); MONOS% (MANUAL) 9 % (2-9); OVALOCYTES 1+; SCHISTOCYTES 1+; SEG#(MANUAL) 4.69 x10^3/uL (1.8-6.8); SEGS% (MANUAL) 66 % (42-75)
[2020-06-09 05:06] LABS: <PLATELET ESTIMATE> DECREASED; <PLT MORPHOLOGY> NORMAL PLT MORPH
[2020-06-09] MEDS: OXYcodone IR 5MG TABLET PO PRN ×3 (06:00→23:45)
[2020-06-09] MEDS: PANTOPRAZOLE 40MG TABLET PO SCH (06:00)
[2020-06-09 06:01] VITALS: BP 122/70
[2020-06-09] MEDS: CARVEDILOL 3.125 MG TABLET PO SCH ×2 (06:01→18:30)
[2020-06-09] MEDS: APIXABAN 5 MG TABLET PO SCH ×2 (06:01→18:30)
[2020-06-09 07:32] VITALS: BP 120/84
[2020-06-09] MEDS: VENLAFAXINE XR 37.5MG CAP.ER.24H PO SCH (08:11)
[2020-06-09] MEDS: AMIODARONE 200 MG TABLET PO SCH (08:11)
[2020-06-09] MEDS: TIOTROPIUM BROMIDE 18 MCG/INH INH SCH (08:11)
[2020-06-09] MEDS: ASPIRIN 81 MG TABLET EC PO SCH (08:11)
[2020-06-09] MEDS: SPIRONOLACTONE 25 MG TABLET PO SCH (08:12)
[2020-06-09] MEDS: CYANOCOBALAMIN 1,000 MCG TABLET PO SCH (08:12)
[2020-06-09] MEDS: VALSARTAN 80 MG TABLET PO SCH (08:12)
[2020-06-09] MEDS: FOLIC ACID 1 MG TABLET PO SCH (08:12)
[2020-06-09] MEDS: BUPROPION SR 150 MG TABLET PO SCH (08:12)
[2020-06-09 14:15] VITALS: BP 100/51
[2020-06-09] MEDS: ONDANSETRON ODT 4 MG PO PRN (17:03)
[2020-06-09 18:24] VITALS: BP 116/67
[2020-06-09 19:14] LABS: CHLORIDE,URINE RANDOM 20 mmol/L; POTASSIUM,URINE RANDOM 44 mmol/L; SODIUM,URINE RANDOM 20 mmol/L
[2020-06-09 19:20] VITALS: BP 113/71
[2020-06-09 19:28] LABS: OSMOLALITY,URINE 275 mOsm/kg (500-850)
[2020-06-09] MEDS: ONDANSETRON 2MG/ML, 2ML IVPush PRN (20:36)
[2020-06-09] MEDS: DOCUSATE 100 MG CAPSULE PO PRN (20:44)
[2020-06-09] MEDS: SENNOSIDES 8.6 MG TABLET PO SCH (20:44)
[2020-06-09] MEDS: POLYETHYLENE GLYCOL 17 GM PACKET PO PRN (20:44)
[2020-06-09] MEDS: ATORVASTATIN 40 MG TABLET PO SCH (20:44)
[2020-06-09] MEDS: TRAZODONE 50MG TABLET PO PRN (21:25)
[2020-06-09] MEDS: BISACODYL 10 MG SUPP PR PRN (21:50)
[2020-06-10 00:51] VITALS: BP 117/75
[2020-06-10 01:42] VITALS: BP 138/62
[2020-06-10 04:26] LABS: CHLORIDE 86 mmol/L (98-107); CREATININE 3.51 mg/dL (0.55-1.02)
[2020-06-10 04:35] LABS: ANION GAP 12 mmol/L (5-15)
[2020-06-10 04:50] LABS: MD YES; MEAN CORPUSCULAR HEMOGLOBIN 31.8 pg (27.0-34.8); MEAN CORPUSCULAR HGB CONC 31.8 g/dL (32.4-35.8); MEAN PLATELET VOLUME 11.3 fL (7.4-10.4); PLATELET COUNT 167 x10^3/uL (130-400); RED BLOOD COUNT 3.75 x10^6/uL (3.82-5.3); RED CELL DISTRIBUTION WIDTH 23.6 % (9.6-15.2)
[2020-06-10 04:51] LABS: BAND#(MANUAL) 0.08 x10^3/uL; BANDS%(MANUAL) 1 % (0-7); LYMPH#(MANUAL) 0.84 x10^3/uL (1-3.4); LYMPHS% (MANUAL) 10 % (22-44); MONOS#(MANUAL) 1.01 x10^3/uL (0.3-2.7); MONOS% (MANUAL) 12 % (2-9); SEG#(MANUAL) 6.47 x10^3/uL (1.8-6.8); SEGS% (MANUAL) 77 % (42-75)
[2020-06-10 04:52] LABS: <PLATELET ESTIMATE> DECREASED; ACANTHOCYTES 1+; ANISOCYTOSIS 1+; ECHINOCYTES 1+; HYPOCHROMIA 1+; LARGE PLATELETS 1+; OVALOCYTES 1+; SCHISTOCYTES 1+
[2020-06-10 05:24] VITALS: BP 114/65
[2020-06-10] MEDS: PANTOPRAZOLE 40MG TABLET PO SCH (05:32)
[2020-06-10] MEDS: CARVEDILOL 3.125 MG TABLET PO SCH ×2 (05:32→17:48)
[2020-06-10] MEDS: APIXABAN 5 MG TABLET PO SCH ×2 (05:32→17:48)
[2020-06-10 07:43] VITALS: BP 125/77
[2020-06-10] MEDS: BUPROPION SR 150 MG TABLET PO SCH (07:57)
[2020-06-10] MEDS: TIOTROPIUM BROMIDE 18 MCG/INH INH SCH (07:57)
[2020-06-10] MEDS: ASPIRIN 81 MG TABLET EC PO SCH (07:57)
[2020-06-10] MEDS: AMIODARONE 200 MG TABLET PO SCH (07:58)
[2020-06-10] MEDS: AMLODIPINE 2.5 MG TABLET PO SCH (07:58)
[2020-06-10] MEDS: SENNOSIDES 8.6 MG TABLET PO SCH ×2 (07:58→20:27)
[2020-06-10] MEDS: VENLAFAXINE XR 37.5MG CAP.ER.24H PO SCH (07:58)
[2020-06-10] MEDS: FOLIC ACID 1 MG TABLET PO SCH (07:58)
[2020-06-10] MEDS: CYANOCOBALAMIN 1,000 MCG TABLET PO SCH (07:58)
[2020-06-10] MEDS: OXYcodone IR 5MG TABLET PO PRN ×2 (08:22→23:59)
[2020-06-10] MEDS: BISACODYL 10 MG SUPP PR PRN (08:22)
[2020-06-10 13:00] VITALS: BP 110/67
[2020-06-10] MEDS ORDERED: SODIUM POLYSTYRENE SULFONATE ORAL SUSP PO ONE (13:00)
[2020-06-10] MEDS: SODIUM CHLORIDE 0.9% 1,000 ML IV SCH ×2 (13:00→23:00)
[2020-06-10] MEDS: METHYLNALTREXONE 12 MG/0.6 ML SYR SQ SCH (13:29)
[2020-06-10 18:51] VITALS: BP 114/72
[2020-06-10] MEDS: ATORVASTATIN 40 MG TABLET PO SCH (20:27)
[2020-06-11 01:58] VITALS: BP 110/66
[2020-06-11 04:17] LABS: MEAN CORPUSCULAR HEMOGLOBIN 32.9 pg (27.0-34.8); MEAN CORPUSCULAR HGB CONC 32.8 g/dL (32.4-35.8); MEAN PLATELET VOLUME 11.7 fL (7.4-10.4); PLATELET COUNT 161 x10^3/uL (130-400); RED BLOOD COUNT 3.72 x10^6/uL (3.82-5.3); RED CELL DISTRIBUTION WIDTH 23.7 % (9.6-15.2)
[2020-06-11 04:20] LABS: ANION GAP 10 mmol/L (5-15); CALCIUM 8.6 mg/dL (8.5-10.1); CHLORIDE 88 mmol/L (98-107); CREATININE 3.01 mg/dL (0.55-1.02)
[2020-06-11 04:58] VITALS: BP 127/74
[2020-06-11] MEDS: PANTOPRAZOLE 40MG TABLET PO SCH (05:02)
[2020-06-11] MEDS: APIXABAN 5 MG TABLET PO SCH ×2 (05:02→17:41)
[2020-06-11] MEDS: CARVEDILOL 3.125 MG TABLET PO SCH ×2 (05:03→17:41)
[2020-06-11] MEDS: OXYcodone IR 5MG TABLET PO PRN ×3 (05:04→22:31)
[2020-06-11 05:38] LABS: ANISOCYTOSIS 1+; BASOPHILS # (AUTO) 0.01 x10^3/uL (0-0.1); BASOPHILS % (AUTO) 0 % (0-1); EOSINOPHILS # (AUTO) 0.11 x10^3/uL (0-0.4); EOSINOPHILS % (AUTO) 1 % (1-7); HYPOCHROMIA 1+; LYMPHOCYTES # (AUTO) 0.71 x10^3/uL (1-3.4); LYMPHOCYTES % (AUTO) 9 % (22-44); MD MORPH REVIEW ONLY; MONOCYTES # (AUTO) 0.93 x10^3/uL (0.2-0.8); MONOCYTES % (AUTO) 11 % (2-9); NEUTROPHILS # (AUTO) 6.59 x10^3/uL (1.8-6.8); NEUTROPHILS % (AUTO) 79 % (42-75)
[2020-06-11 05:39] LABS: ACANTHOCYTES 1+; ECHINOCYTES 1+; OVALOCYTES 1+; SCHISTOCYTES 1+
[2020-06-11 05:40] LABS: <PLATELET ESTIMATE> ADEQUATE; LARGE PLATELETS 1+
[2020-06-11 07:26] VITALS: BP 123/73
[2020-06-11] MEDS: BUPROPION SR 150 MG TABLET PO SCH (08:48)
[2020-06-11] MEDS: VENLAFAXINE XR 37.5MG CAP.ER.24H PO SCH (08:48)
[2020-06-11] MEDS: FOLIC ACID 1 MG TABLET PO SCH (08:48)
[2020-06-11] MEDS: ASPIRIN 81 MG TABLET EC PO SCH (08:48)
[2020-06-11] MEDS: AMLODIPINE 2.5 MG TABLET PO SCH (08:48)
[2020-06-11] MEDS: SENNOSIDES 8.6 MG TABLET PO SCH ×2 (08:48→20:10)
[2020-06-11] MEDS: AMIODARONE 200 MG TABLET PO SCH (08:49)
[2020-06-11] MEDS: TIOTROPIUM BROMIDE 18 MCG/INH INH SCH (08:49)
[2020-06-11] MEDS: CYANOCOBALAMIN 1,000 MCG TABLET PO SCH (08:49)
[2020-06-11] MEDS: SODIUM CHLORIDE 0.9% 1,000 ML IV SCH ×2 (08:49→17:41)
[2020-06-11] MEDS ORDERED: SENN-99 PO (11:36)
[2020-06-11] MEDS ORDERED: DOCU100T PO (11:36)
[2020-06-11] MEDS ORDERED: CARV3.1212 PO (11:36)
[2020-06-11] MEDS ORDERED: APIX2.5T PO (11:36)
[2020-06-11 13:37] VITALS: BP 112/71
[2020-06-11 17:36] VITALS: BP 109/71
[2020-06-11] MEDS: POLYETHYLENE GLYCOL 17 GM PACKET PO PRN (17:41)
[2020-06-11 19:39] VITALS: BP 129/83
[2020-06-11] MEDS: ATORVASTATIN 40 MG TABLET PO SCH (20:10)
[2020-06-11] MEDS: ONDANSETRON 2MG/ML, 2ML IVPush PRN (20:10)
[2020-06-12 01:40] VITALS: BP 132/76
[2020-06-12] MEDS: APIXABAN 5 MG TABLET PO SCH (04:52)
[2020-06-12] MEDS: PANTOPRAZOLE 40MG TABLET PO SCH (04:52)
[2020-06-12] MEDS: SODIUM CHLORIDE 0.9% 1,000 ML IV SCH (04:52)
[2020-06-12] MEDS: CARVEDILOL 3.125 MG TABLET PO SCH (04:53)
[2020-06-12 07:46] VITALS: BP 129/79
[2020-06-12] MEDS: VENLAFAXINE XR 37.5MG CAP.ER.24H PO SCH (09:36)
[2020-06-12] MEDS: TIOTROPIUM BROMIDE 18 MCG/INH INH SCH (09:36)
[2020-06-12] MEDS: BUPROPION SR 150 MG TABLET PO SCH (09:36)
[2020-06-12] MEDS: FOLIC ACID 1 MG TABLET PO SCH (09:36)
[2020-06-12] MEDS: ASPIRIN 81 MG TABLET EC PO SCH (09:36)
[2020-06-12] MEDS: SENNOSIDES 8.6 MG TABLET PO SCH (09:36)
[2020-06-12] MEDS: AMLODIPINE 2.5 MG TABLET PO SCH (09:36)
[2020-06-12] MEDS: POLYETHYLENE GLYCOL 17 GM PACKET PO PRN (09:36)
[2020-06-12] MEDS: AMIODARONE 200 MG TABLET PO SCH (09:36)
[2020-06-12] MEDS: CYANOCOBALAMIN 1,000 MCG TABLET PO SCH (09:36)
[2020-06-12] MEDS: METHYLNALTREXONE 12 MG/0.6 ML SYR SQ SCH (13:08)
[2020-06-15] MEDS ORDERED: APIXABAN 2.5 MG TABLET PO SCH (21:00)
== END 2020-06-12 14:05 | disposition hospice, home (50) | DRG 291 ==
LOC: ED 19:00 → EDIP 19:05 → 4WST 21:36
PROVIDERS: ADMIT Internal Medicine; ATTEND Hospitalist
PROC: 0WJ93ZZ Inspection of Right Pleural Cavity, Percutaneous Approach (ICD-10-PCS; principal; 2020-06-07)
DX: I11.0 Hypertensive heart disease with heart failure (principal); J96.01 Acute respiratory failure with hypoxia; I26.99 Other pulmonary embolism without acute cor pulmonale; N17.9 Acute kidney failure, unspecified; D68.59 Other primary thrombophilia; E87.1 Hypo-osmolality and hyponatremia; J90 Pleural effusion, not elsewhere classified; I82.403 Acute embolism and thrombosis of unspecified deep veins of lower extremity, bilateral; I50.43 Acute on chronic combined systolic (congestive) and diastolic (congestive) heart failure; I08.0 Rheumatic disorders of both mitral and aortic valves; F17.210 Nicotine dependence, cigarettes, uncomplicated; J44.9 Chronic obstructive pulmonary disease, unspecified; E78.5 Hyperlipidemia, unspecified; I08.3 Combined rheumatic disorders of mitral, aortic and tricuspid valves; I48.0 Paroxysmal atrial fibrillation; K29.60 Other gastritis without bleeding; D64.9 Anemia, unspecified; Z95.1 Presence of aortocoronary bypass graft; I25.10 Atherosclerotic heart disease of native coronary artery without angina pectoris; I25.5 Ischemic cardiomyopathy; I25.82 Chronic total occlusion of coronary artery; E87.5 Hyperkalemia; G89.29 Other chronic pain; K31.84 Gastroparesis; K59.03 Drug induced constipation; T40.605A Adverse effect of unspecified narcotics, initial encounter; Z96.642 Presence of left artificial hip joint; Z51.5 Encounter for palliative care; Z66 Do not resuscitate; Z79.899 Other long term (current) drug therapy; Z82.49 Family history of ischemic heart disease and other diseases of the circulatory system; Z85.51 Personal history of malignant neoplasm of bladder; Z90.710 Acquired absence of both cervix and uterus; Z99.81 Dependence on supplemental oxygen
CPT/HCPCS: 32555; 36415; 71045; 71046; 71275; 74018; 76770; 80048; 80053; 80061; 81003; 82436; 82962; 83036; 83690; 83735; 83880; 83930; 83935; 84132; 84133; 84300; 84439; 84443; 84484; 85025; 85379; 93005; 93306; 93970; 96374; 96375; 99285; G0378; J1644; J1650; J1940; J2405; P9047; Q0162; Q9967; J7030